=== PATIENT | female | born 1955 | race Caucasian/White ===

== ENCOUNTER → 2024-08-31 09:07 | Outpatient (REF) | payer MEDICARE, OTHER, SELFPAY ==
[2024-08-31 09:37] LABS: % Basophils 1.3 % (0-2); % Eosinophils 2.2 % (0-6); % Immature Granulocytes 0.2 % (0-0.5); % Lymphocytes 38.6 % (20.5-51.1); % Monocytes 8.8 % (1.7-9.3); % Neutrophils 48.9 % (42.2-75.2); Absolute Basophils 0.1 10^3/uL (0-0.2); Absolute Eosinophils 0.1 10^3/uL (0-0.7); Absolute Lymphocytes 2.1 10^3/uL (1.2-3.4); Absolute Monocytes 0.5 10^3/uL (0.1-0.6); Absolute Neutrophils 2.7 10^3/uL (1.4-6.5); Hematocrit 44.4 % (37.0-47.0); Hemoglobin 15.5 g/dL (12.0-16.0); Mean Corp Hgb Conc. 34.9 g/dL (33.0-37.0); Mean Corpuscular Hgb 29.3 pg (27.0-31.0); Mean Corpuscular Volume 83.9 fL (81.0-99.0); Mean Platelet Volume 9.9 fL (7.4-10.4); Nucleated Red Blood Cells % 0 %; Platelet Count 242 10^3/uL (130-400); Red Blood Cell Count 5.29 10^6/uL (4.20-5.40); Red Cell Dist. Width 13.2 % (11.5-14.5); White Blood Cell Count 5.5 10^3/uL (4.8-10.8)
[2024-08-31 09:47] LABS: INR 1.13; PT 14.8 Sec (11.4-14.6)
[2024-08-31 09:53] LABS: ALT (SGPT) 21 U/L (0-35); AST (SGOT) 24 U/L (14-36); Albumin 4.4 g/dl (3.5-5.0); Alkaline Phosphatase 57 U/L (38-126); Blood Urea Nitrogen 21 mg/dl (7-17); Calcium 10.3 mg/dl (8.4-10.2); Carbon Dioxide 29 mmol/L (22-30); Chloride 107 mmol/L (98-107); Glucose 87 mg/dl (70-99); Magnesium 1.9 mg/dl (1.6-2.3); Potassium 4.9 mmol/L (3.5-5.1); Sodium 141 mmol/L (135-145); Total Bilirubin 0.7 mg/dl (0.2-1.3); Total Protein 7.1 g/dl (6.3-8.2); eGFR > 60.00
== END ==
LOC: SDSPAT 09:07
PROVIDERS: ATTENDING PHYSICIAN Internal Medicine Cardiovascular Disease; FAMILY PHYSICIAN Internal Medicine; OTHER PHYSICIAN Internal Medicine Cardiovascular Disease
DX: I48.0 Paroxysmal atrial fibrillation (principal)
CPT/HCPCS: 36415; 75572; 80053; 83735; 85025; 85610; 86850; 86900; 86901; 93005; Q9967

== ENCOUNTER 2024-09-08 05:54 | Day surgery (SDC) | payer MEDICARE, OTHER, SELFPAY ==
[2024-08-31 09:16] VITALS: BMI 20.5
[2024-09-08] VITALS (12 sets, daily range): BP systolic 97–132; BP diastolic 62–98; BMI 20.4
[2024-09-08] MEDS: TYLENOL 1000 MG PO (06:58)
--- NOTE | 2024-09-08 07:50 | ITS.CL.ABL ---
Knowledge Analyst - Ablation
Ablation
Procedure Report:
ELECTROPHYSIOLOGIC STUDY AND POSSIBLE ABLATION
DATE: September 08, 2024
Primary Care Provider: Brielle Silva MD
Primary fire alarm technician: Dr Brien Rosenthal
INDICATION:
Symptomatic Atrial Fibrillation.
Persistent
HISTORY: See H and P.
Symptomatic AF, poorly controlled with attempted medical therapy.
Persistent
HAS-BLED: 1
Age
CHADSVASc: 2
Age
F Gender
PRESENTING RHYTHM: AF
HISTORY: See H and P.
Symptomatic AF, poorly controlled with attempted medical therapy. She is poorly tolerating beta-ronda and digoxin.
Additional medical history includes dislocated lens as a child. Her father and son both have diagnosis of Marfan syndrome. 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 This
gene carries unknown significance but can express phenotypical Marfan syndrome.
Echocardiogram from December 2016: EF 60-65%, mild MR, trileaflet aortic valve, normal size aortic root, ascending aorta 4.2 cm
Echo October 2018 EF 65%, trace MR, normal aortic root and ascending aorta size. �CTA performed April 23, 2019 finds no evidence of thoracoabdominal aortic aneurysm.� The aorta is normal size with ascending aorta at 2.9 cm at its greatest
orthogonal dimension, the aortic arch measures 2.5 cm at its greatest orthogonal dimension.� The descending thoracic aorta measures 2.4 cm in diameter.� Tortuosity of the thoracoabdominal aorta is noted and is felt likely to be related to severe
scoliosis. Preablation CTA from September 01, 2019 finds finds thoracic aorta is normal in caliber and demonstrates homogeneous intraluminal enhancement
ANTICOAGULATION: Eliquis 5 mg twice daily
'TIME-OUT': called and confirmed.
SEDATION/ANESTHESIA: provided via the anesthesia department using general anesthesia.
PROCEDURE:
Ultrasound Guidance with real-time visualization of needle insertion and vessel patency performed by ga for femoral venous Vascular Access.
Under real-time US guidance, the needle was advanced with negative pressure into the vein. The needle was seen entering the vessel lumen with a good return of dark red flow, the syringe was removed, non-pulsatile, dark red blood low was noted and
the wire was passed without difficulty, then the needle was removed. US confirmed the wire was in the vein, not going into an artery,
Images were taken and saved for the patient's permanent record. Imaging findings typical femoral venous anatomy. Direct visualization of needle puncture into the femoral vein was observed and recorded.
A decapolar CS catheter was placed within the CS for mapping and pacing.
The intracardiac ultrasound catheter was positioned in the RA for continuous intracardiac ultrasound imaging.
Heparin bolus and infusion to target ACT at 300 -350 seconds was administered. Transseptal puncture was performed. This entailed advancing a sheath with dilator into the superior vena cava and withdrawing both (monitoring intracardiac ultrasound,
fluoroscopy and tip pressure) with the tip oriented toward the atrial septum. The fossa ovalis was engaged (indicated by sudden displacement of the sheath tip as well as tenting of the fossa seen on intracardiac ultrasound).
The [employer] transseptal system was used. Left atrial catheter position was confirmed by echocardiographic imaging and fluoroscopy followed by RF delivery using the [employer] system resulting in successful LA access with pressure monitoring
demonstrating LA pressure waveforms (LA mean pressure [ ] mm Hg). The sheath was advanced over the dilator and positioned in the left atrium.
The Cross Grid multipolar mapping catheter was initially positioned through the transseptal sheath for high density mapping.
Cardioversion resulted in sinus rhythm but atrial fibrillation rapidly resumed.
Mapping was therefore performed in atrial fibrillation.
Geometry and voltage mapping was performed using the Cross multipolar grid catheter. Ensite-X was utilized for three-dimensional electroanatomical mapping.
A 3-D map was created using Ensite-X in Voxel mode. A 3-D reconstructed CT image was compared to the 3-D [employer] map to assist in anatomic evaluation, mapping and ablation.
The [employer] PFA catheter and system was used for cardiac ablation. Catheter positioning was guided and confirmed using both I.C.E. and fluoroscopy.
Ablation strategy included PVI as well as mapping for extra PV contributors to atrial fibrillation which would also be targeted if present.
High density electroanatomical three-dimensional mapping demonstrated LSPV, LIPV, RSPV, RIPV.
After accomplishing pulmonary venous isolation, mapping identified additional areas likely to be extra PV contributors to atrial fibrillation. These areas demonstrated patchy low voltage as well as complex fractionated electrograms. These areas can
be sites for the formation of rotors which can drive and maintain atrial fibrillation. These areas are known to be significant contributors to initiation and perpetuation of atrial fibrillation.
Additional energy applications/additional ablation sets targeted extra PV contributors to atrial fibrillation.
Targets for additional PFA ablation included:
LA posterior wall targeted with pulsed electric field energy isolating the posterior wall of the left atrium
After ablation of the posterior wall, additional targets remained:
LA inferior floor which was ablated using pulsed electric field energy eliminating the extra PV contributors to atrial fibrillation.
Post ablation mapping finds entrance and exit block at each of the pulmonary veins (LSPV, LIPV, RSPV, RIPV), the LA posterior wall and at the additional line at the inferior/floor of the LA rendering the sites no longer able to contribute to atrial
fibrillation.
Programmed electrostimulation including burst atrial pacing as well the delivery of decremental extrastimuli down to atrial effective refractory period and no sustained arrhythmias could be induced.
I.C.E. :
Pre-Ablation Post-Ablation
LVEF: 55 % 55 %
WMA: none none
Pericardial effusion: none none
COMPLICATIONS:
none
SUMMARY:
- Mapping and ablation to isolate the PVs
- Additional AF ablation set after PVI.
Left atrial posterior wall
Floor line at the left atrium
- 3-D Electroanatomical Mapping
- Intracardiac Ultrasound
- Ultrasound guidance for vascular access
Post ablation, I discussed today's findings and results with the patient's Lemuel high.
RECOMMENDATIONS:
- Observe in monitored bed.
- Maintain oral anticoagulation.
- Discontinue digoxin, continue beta-ronda for now
- Office visit with Dr Brien Rosenthal is scheduled for December 14, 2024
- Continue cardiovascular care with [ ]
Copy to:
Brielle Silva MD
Dr Brien Rosenthal
[2024-09-08 11:53] LABS: ACT-LR - POC 353 Seconds (116-155)
[2024-09-08 11:53] LABS: ACT-LR - POC 292 Seconds (116-155)
--- NOTE | 2024-09-08 14:46 | W.PN.UPDATE ---
Update Note
Progress Note Update
69 yo WF s/p PVI (same day). She denies cp, sob, rasta diet, voiding, amb w/o dizziness, EKG SR, R fem site c/d/i no HT, soft. She will resume Eliquis tonight. Activity restrictions reviewed. She will f/u Dr. Rosenthal in 3 mo. She is for d/c home
after 230p if groin stable.
== END 2024-09-08 15:01 | disposition home or self-care (01) ==
LOC: CATH 05:54
PROVIDERS: ATTENDING PHYSICIAN Internal Medicine Cardiovascular Disease; FAMILY PHYSICIAN Internal Medicine
DX: I48.91 Unspecified atrial fibrillation (principal); M41.9 Scoliosis, unspecified; Z85.3 Personal history of malignant neoplasm of breast; K44.9 Diaphragmatic hernia without obstruction or gangrene; K21.9 Gastro-esophageal reflux disease without esophagitis; Z79.899 Other long term (current) drug therapy; Z79.01 Long term (current) use of anticoagulants; Z87.891 Personal history of nicotine dependence
CPT/HCPCS: C1732; C1894; C1769; C1730; C1892; 85347; 86900; 86901; 93005; 93656; 93657; C1733; C1766